=== PATIENT | female | born 1975 | race Caucasian/White ===

== ENCOUNTER 2024-08-07 11:50 | Outpatient (CLI) | payer OTHER, SELFPAY ==
--- NOTE | 2024-08-07 12:00 | CRLHL7_ITS ---
For Patients: As a result of the Century Cures Act, medical imaging exams and procedure reports are released immediately into your electronic medical record. You may view this report before your referring provider. If you have questions, please contact your health care provider. EXAM: NM LUNG VENTILATION & PERFUSION SCAN CLINICAL INFORMATION: 49-yo woman with shortness of breath and positive D-dimer. COMPARISON: Chest radiograph 08/07/2024. TECHNIQUE: The patient received 42.7 mCi of aerosolized Tc-99m DTPA; ventilation images in the standard 8 planar views were obtained. Then, 4.2 mCi of Tc-99m MAA was administered intravenously; perfusion images in the standard 8 planar views were obtained. FINDINGS: Perfusion images: Normal perfusion in both lungs without concerning filling defects. Ventilation images: Heterogeneously distributed inhaled radiotracer in both lungs without focal defects. No evidence of mismatched perfusion defects on comparison with ventilation images. IMPRESSION: No evidence of pulmonary embolism. Interpretation Discussion: As per the Trinary system of interpretation; new interpretation (previous interpretation): - No evidence of pulmonary embolism (very low/low probability) - Pulmonary embolism present (high probability) - Non-diagnostic study (intermediate/indeterminate probability); Single-large or moderate-sized segmental mismatched ventilation/perfusion defect is considered to be PE present. Recommend correlation with a recent noncontrast CT chest study to determine non-pulmonary embolism structural abnormality (extrinsic compression of pulmonary vasculature such as tumor, fibrosis, etc.) to explain a single-mismatch. Single whole lung is considered to be non-diagnostic. - `No evidence of PE` reports are associated with a <10% likelihood of PE (90% negative predictive value). - Outcome studies of patients with low-probability scans who were observed without anticoagulation therapy, reported an incidence of non-fatal and fatal PE of 0.13% and 0% respectively. - For each of these interpretations, it must be understood that if there is discordance between this interpretation and objective clinical assessment, i.e., pre-test probability of Wells Score, then further testing may be needed. Reference: Amelia LOPEZ, Kamar M, Sammie L, et al., Successful and Safe Implementation of a Trinary Interpretation and Reporting Strategy for V/Q Lung Scintigraphy. The Journal of Nuclear Medicine. Vol. 52. No: 10. April 2011. Dictated by Mat Gann MD @ 08/07/2024 4:56:57 PM (Electronically Signed)
--- NOTE | 2024-08-07 13:00 | CRLHL7_ITS ---
For Patients: As a result of the Cures Act, medical imaging exams and procedure reports are released immediately into your electronic medical record. You may view this report before your referring provider. If you have questions, please contact your health care provider. INDICATION: Shortness of breath, positive d dimer, positive d ayush TECHNIQUE: Chest radiograph 2 views COMPARISON: 04/17/2016 FINDINGS: Mediastinum: The mediastinum is normal in appearance. The heart silhouette is normal in size and morphology. Lung: Both lungs are unremarkable in appearance. No sign of pleural effusion seen. No pneumothorax is identified. Bone and Soft tissue: Unremarkable for age. IMPRESSION: 1. No acute cardiopulmonary disease is seen. Dictated by: Jayme Horvath MD @ 08/07/2024 12:51:47 (Electronically Signed)
== END 2024-08-07 11:51 | disposition home or self-care (01) ==
LOC: NM 11:52
PROVIDERS: PCP Physician Assistant Medical; Visit Provider Physician Assistant Medical
DX: R06.02 Shortness of breath (principal); R79.89 Other specified abnormal findings of blood chemistry
CPT/HCPCS: 71046; 78582; A9540; A9567